=== PATIENT | male | born 1940 | race Caucasian/White ===

== ENCOUNTER 2016-12-09 12:06 | Inpatient (IN) | payer BC, OTHER ==
--- NOTE | ~2016-12-09 | EGD ---
EGD REPORT [facility] [address] [address] NAME: ADELA BOWMAN : 44 STATUS : ADM IN PAT#: [id number] AGE: 76 ADM/REG DATE : 12/09/16 MR#: [id number] REPORT SERV DATE: 12/10/16 DICTATED BY: ROWDY HERNANDEZ DATE: 12/10/16 REPORT STATUS : Draft TRANSCRIBED BY: [facility] DATE: 12/10/16 Endoscopy Center Patient Name: Adela Bowman Date of : 1940 Attending MD: ROWDY HERNANDEZ MD Procedure Date No Time: 12/10/2016 Procedure: Upper GI endoscopy Indications: Heartburn, Suspected esophageal reflux, Melena, Nausea, Personal history of peptic ulcer disease Medicines: as per anesthesia Complications: No immediate complications. Procedure: Pre-Anesthesia Assessment: - ASA Grade Assessment: III - A patient with severe systemic disease. After obtaining informed consent, the endoscope was passed under direct vision. Throughout the procedure, the patient's blood pressure, pulse, and oxygen saturations were monitored continuously. The GIF [id number] was introduced through the mouth, and advanced to the afferent and efferent jejunal loops. The upper GI endoscopy was accomplished without difficulty. The patient tolerated the procedure. Findings: The examined esophagus was normal. Evidence of a patent Billroth II gastrojejunostomy was found. The gastrojejunal anastomosis was characterized by healthy appearing mucosa. This was traversed. The efferent limb was examined. The afferent limb was examined. The cardia and gastric fundus were normal on retroflexion. Impression: - Normal esophagus. - Patent Billroth II gastrojejunostomy was found. Recommendation: - Continue present medications. Procedure Code(s): --- Professional --- 76685, Esophagogastroduodenoscopy, flexible, transoral; diagnostic, including collection of specimen(s) by brushing or washing, when performed (separate procedure) Diagnosis Code(s): --- Professional --- Z98.0, Intestinal bypass and anastomosis status R12, Heartburn K92.1, Melena EGD REPORT [facility] [address] [place]. [address] NAME: ADELA BOWMAN : [birth year] STATUS : ADM IN PAT#: [id number] AGE: 76 ADM/REG DATE : 12/09/16 MR#: [id number] REPORT SERV DATE: 12/10/16 DICTATED BY: ROWDY HERNANDEZ. DATE: 12/10/16 REPORT STATUS : Draft TRANSCRIBED BY: [employer] DATE: 12/10/16 R11.0, Nausea Z87.11, Personal history of peptic ulcer disease CPT copyright 2013 [employer]. All rights reserved. The codes documented in this report are preliminary and upon grocery store bagger review may be revised to meet current compliance requirements. ROWDY HERNANDEZ MD 12/10/2016 1:54 PM This report has been signed electronically. Number of Addenda: 0 Note Initiated On: 12/10/2016 1:35 PM Scope Withdrawal Time 0 hours 0 minutes 0 seconds [id number] [facility] [place] [id number]
--- NOTE | ~2016-12-09 | CN ---
Consultation Report [place] [address] [place]. [address] NAME: ADELA BOWMAN : 44 STATUS : ADM IN PAT#: [id number] AGE: 76 ADM/REG DATE : 12/09/16 MR#: [id number] REPORT SERV DATE: 12/10/16 DICTATED BY: ROWDY HERNANDEZ DATE: 12/10/16 REPORT STATUS : Draft TRANSCRIBED BY: MODL DATE: 12/10/16 CONSULTATION DATE OF CONSULTATION: 12/10/2016 HISTORY OF PRESENT ILLNESS: This is a 76-year-old white male admitted with GI bleed, black stool, was hypotensive, weak, some nausea, some periumbilical discomfort, past history of peptic ulcer disease with surgery, and some history of GERD. CT reveals a renal mass. Urology has been consulted. Some history of chronic kidney disease and history of coronary artery disease, status post CAB in 2015. SOCIAL HISTORY: A former smoker, former drinker. MEDICATIONS: Takes aspirin, also takes Goody powders, and also takes nonsteroidals. FAMILY HISTORY: Positive for colon cancer and also history of COPD and hypertension. PHYSICAL EXAMINATION: GENERAL: An elderly white male, alert. HEENT: Anicteric. NECK: Negative. CHEST: Clear to percussion. HEART: Regular rate and rhythm. No murmur or gallop. ABDOMEN: Soft. Mild periumbilical tenderness. Bowel sounds present. EXTREMITIES/NEUROLOGIC: Grossly intact. ASSESSMENT: 1. Gastrointestinal bleed, melena, history of peptic ulcer disease with surgery. Aspirin, Goody powders, and nonsteroidals. Minimal abdominal discomfort, nausea, and gastroesophageal reflux disease. GERD. 2. Renal mass on CT. 3. Coronary artery disease, status post coronary artery bypass. 4. Chronic obstructive pulmonary disease. 5. Hypertension. 6. Chronic kidney disease. SUGGESTIONS: 1. Followup H and H. 2. Protonix drip. 3. We will schedule for EGD. DC/MODL Consultation Report [place] [address] [facility] [place]. [address] NAME: ADELA BOWMAN : [birth year] STATUS : ADM IN PAT#: [id number] AGE: 76 ADM/REG DATE : 12/09/16 MR#: [id number] REPORT SERV DATE: 12/10/16 DICTATED BY: ROWDY HERNANDEZ DATE: 12/10/16 REPORT STATUS : Draft TRANSCRIBED BY: RASHAWN DATE: 12/10/16 Rowdy Hernandez M.D. / [id number] CC: Bear Cho MD
--- NOTE | ~2016-12-09 | DS ---
Discharge Summary [place] [id number] [facility] [place]. [address] NAME: ADELA BOWMAN : 44 STATUS : DIS IN PAT#: [id number] AGE: 76 ADM/REG DATE : 12/09/16 MR#: [id number] REPORT SERV DATE: 12/13/16 DICTATED BY: LUC PEREZ DATE: 12/12/16 REPORT STATUS : Draft TRANSCRIBED BY: MODCraig DATE: 12/12/16 ADMISSION DATE: 12/09/2016 DISCHARGE DATE: 12/12/2016 PROCEDURES DONE: 1. 12/09/2016: CT of the abdomen and pelvis without contrast. a. Gallstones, gallbladder full. No evidence of biliary ductal obstruction seen. Mass in the left kidney needs workup, suspect underlying renal cell neoplasm. Marked prostate enlargement. 2. 12/12/2016: Small-bowel follow-through. a. Small sliding hiatal hernia with prominent reflux at the level of the upper thoracic esophagus. Otherwise, the esophagus appears unremarkable. Status post distal gastrectomy with remaining stomach appearing unremarkable. There is patent gastrojejunostomy site. Some surgical clips are also seen surrounding the GE junction. Small bowel appears grossly normal without a constricting or obstructing lesion. Terminal ileum empties normally into the cecum. There are few diverticula involving the visualized ascending colon. Small bowel transit time between 15 and 30 minutes. 3. 12/10/2016, operative report: Upper GI endoscopy. a. Findings: Examined esophagus was normal. Evidence of patent Billroth II gastrojejunostomy was found. A gastrojejunal anastomosis was characterized by healthy- appearing mucosa. This was traversed. The efferent limb was examined. Afferent limb was also examined. Cardia and gastric fundus were normal on retroflexion. b. Impression: Normal esophagus. Patent Billroth II gastrojejunostomy was found. c. Recommendation: Continue with present medications. 4. 12/11/2016: Colonoscopy. a. Findings: Perianal and distal rectal exam were normal. Small and large- mouthed diverticula were found in the proximal transverse colon and the ascending colon.. b. Impression: Preparation of the colon was poor. Diverticulosis with proximal transverse colon and the ascending colon. c. Recommendation: Continue present medications. CONSULT: Dr. Charlton for GI. REASON FOR ADMISSION: Left flank pain and black stools. HISTORY OF PRESENT ILLNESS: This is a 76-year-old white male with past medical history of coronary artery disease, status post CABG, chronic kidney disease stage 3, hypertension, presenting with black stools and left flank pain of unknown duration. The patient was admitted for further evaluation of his left flank pain and black stools. GI was consulted for further evaluation and treatment. The patient underwent EGD and colonoscopy, which were negative for any active bleed. The patient also underwent a small-bowel follow-through which has small sliding hiatal hernia, but otherwise, no pathology seen. Furthermore, the patient's H and H have been stable. GI felt the patient will be safely discharged and will Discharge Summary [address] [place]. [address] NAME: ADELA BOWMAN : 44 STATUS : DIS IN PAT#: [id number] AGE: 76 ADM/REG DATE : 12/09/16 MR#: [id number] REPORT SERV DATE: 12/13/16 DICTATED BY: LUC PEREZ DATE: 12/12/16 REPORT STATUS : Draft TRANSCRIBED BY: RASHAWN DATE: 12/12/16 follow up within two weeks' time. Next, Urology was also consulted regarding the left flank pain, questionable secondary to left renal mass. Urology felt the patient can be safely followed outside. The patient was recommended with a followup scan on a later date. At this present time, no further intervention from the urology standpoint. The patient understood that once on discharge, he will need to follow up with Urology as an outpatient. DISPOSITION: The patient is feeling fine. No complaints. ACTIVITIES: As tolerated. DIET: Cardiac. INSTRUCTIONS UPON DISCHARGE: The patient was advised not to take any further Goody Powder or Advil. The patient can take aspirin and Mobic. MEDICATIONS UPON DISCHARGE: 1. Aspirin 81 mg p.o. daily. 2. Mobic 50 mg p.o. daily. 3. Nitrostat 0.4 mg sublingual p.r.n. 4. Colace one tab p.o. daily p.r.n. 5. Lisinopril 10 mg p.o. daily. 6. Flomax 0.4 mg p.o. daily. 7. Zocor 40 mg p.o. at bedtime. 8. ProAir two puffs p.r.n. 9. Coreg 12.5 mg p.o. b.i.d. DIAGNOSES UPON DISCHARGE: 1. Left flank pain. No black stools, questionable etiology secondary to left renal mass. 2. Left flank pain secondary to left renal mass. 3. Left renal mass secondary to questionable renal cell carcinoma. 4. Black stools secondary to questionable gastrointestinal bleed. 5. Hypertension. 6. Acute on chronic kidney disease, stage 3. 7. Hyperlipidemia. 8. Coronary artery disease, status post CABG. RYAN/RASHAWN Luc Perez MD / [id number] CC: Luc Perez MD
--- NOTE | ~2016-12-09 | CN ---
Consultation Report [place] [id number] [facility] [place] [address] NAME: ADELA BOWMAN : 44 STATUS : DIS IN PAT#: [id number] AGE: 76 ADM/REG DATE : 12/09/16 MR#: [id number] REPORT SERV DATE: 12/24/16 DICTATED BY: JOHN PAUL PERAZA DATE: 12/24/16 REPORT STATUS : Draft TRANSCRIBED BY: RASHAWN DATE: 12/24/16 CONSULTATION NOTE DATE OF CONSULTATION: 12/20/2016 REASON FOR CONSULTATION: Coincidental renal mass. HISTORY OF PRESENT ILLNESS: Mr. Bowman is a 76-year-old white gentleman who was admitted for an unrelated issue. DICTATION ENDS HERE /RASHAWN John Paul Peraza M.D. / [id number] CC: Luc Perez MD
--- NOTE | ~2016-12-09 | HP ---
History And Physical [place] [id number] [place]. [address] NAME: ADELA BOWMAN : 44 STATUS : ADM IN [facility]#: [id number] AGE: 76 ADM/REG DATE : 12/09/16 MR#: [id number] REPORT SERV DATE: 12/09/16 DICTATED BY: SAM WIN DATE: 12/09/16 REPORT STATUS : Draft TRANSCRIBED BY: RASHAWN DATE: 12/09/16 DATE OF ADMISSION: 12/09/2016 CHIEF COMPLAINT: Left flank pain and black stools. HISTORY OF PRESENTING ILLNESS: Mr. Bowman is a 76-year-old male with a history of hypertension, coronary artery disease status post CABG, CKD who presented to the emergency room with a complaint of black tarry stools and left flank pain. The patient states that his symptoms started over a week ago. About a week ago, he said he was feeling fine. He woke up in the morning with mild left flank pain. He states that he did not get his symptoms evaluated thinking that his symptoms would resolve, however, pain has progressively worsened. He describes this pain as 7/10 to 8/10 in severity, describes it as a piercing with radiation from his left upper quadrant to his mid abdomen. He reports no alleviating or aggravating factors. He states that this morning, upon awakening, he had a bowel movement. He states that he felt that he was having diarrhea, however, when he was in the process of wiping himself, he noted that his stool was tarry. The patient decided to present to the emergency room for further evaluation. Upon presenting to the emergency room, preliminary workup noted the patient was hypotensive with a blood pressure of 87/55, his hemoglobin was 11.3. The patient was given a 500 mL normal saline bolus in the emergency room with improvement of his blood pressure to about 100 systolic. Also, at the time of presentation the patient was complaining of left flank pain prompting a CT of the abdomen which noted left renal mass concerning for renal cell carcinoma. The patient was therefore admitted under the Hospitalist Service for further management. At the time of my evaluation, the patient corroborated the above story, however, he reported lightheadedness and dizziness stating that any time that he tries to stand up, he gets lightheaded and dizzy. He, however, denies any chest pain, any syncopal episodes. He denies any fevers, any chills. He reports that he has a bowel movement once a week. He denies any recent sick contacts. Denies any heat or cold intolerance. He also denies any blurry vision or any headaches. REVIEW OF SYSTEMS: A 14-point review of system was performed. All systems were negative except as noted in the HPI. PAST MEDICAL HISTORY: 1. Hypertension. 2. Peptic ulcer disease. 3. Small bowel perforation status post small bowel resection. 4. Coronary artery disease status post CABG. 5. CKD stage 3. 6. Dyslipidemia. FAMILY HISTORY: 1. Positive for hypertension. 2. Heart disease. 3. Reports history of a brother, who of bladder cancer. History And Physical [address] [address] NAME: ADELA BOWMAN : 44 STATUS : ADM IN [facility]#: [id number] AGE: 76 ADM/REG DATE : 12/09/16 MR#: [id number] REPORT SERV DATE: 12/09/16 DICTATED BY: SAM WIN DATE: 12/09/16 REPORT STATUS : Draft TRANSCRIBED BY: RASHAWN DATE: 12/09/16 4. Also reports history of a brother, who of prostate cancer. SOCIAL HISTORY: The patient has a 135 pack year smoking history, quit 5 years ago. 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 The patient also reported 10 year alcohol use history, however, quit 11 years ago. The patient states that he has been for over 40 years, currently lives at home with his girl- friend. ALLERGIES: THE PATIENT HAS NO KNOWN DRUG ALLERGIES. HOME MEDICATIONS: Albuterol 2 puff inhalation, aspirin 81 mg p.o. daily, carvedilol 12.5 mg p.o. twice a day, lisinopril 10 mg p.o. daily, Mobic 15 mg p.o. daily, nitroglycerin 0.5 mg sublingual p.r.n., simvastatin 40 mg p.o. at bedtime, and tamsulosin 0.4 mg p.o. daily. PHYSICAL EXAMINATION: VITAL SIGNS: Blood pressure on presentation 87/55, status post 500 mL normal saline bolus, 102/70, pulse on presentation 76, respirations 20, O2 saturation 95% on room air. GENERAL: The patient is lying in bed, appears stated age, in no acute distress. HEENT: Normocephalic, atraumatic. Extraocular motors intact. Moist oral mucosa. Pupils are round and reactive to light and accommodation. Anicteric sclerae. No conjunctival injection. The patient is edentulous. NECK: Trachea midline and symmetric. No JVD noted. No thyromegaly present. No masses palpated. CHEST: Nontender to palpation. Positive scar noted. CARDIOVASCULAR: The patient has 3/6 systolic murmur in the precordium. S1 S2 regular rate and rhythm. No gallop sounds noted. LUNGS: Clear to auscultation bilaterally. ABDOMEN: Positive bowel sounds. Soft, nontender, nondistended. No masses palpated. EXTREMITIES: No cyanosis, no clubbing, no edema. NEURO: Alert and oriented x3. No focal deficits appreciated. LABS: WBC 6.7, hemoglobin 11.8, hematocrit 35.3 with an MCV of 86, platelets 167. Sodium 144, potassium 4.8, chloride 111, bicarb 24, BUN 47, creatinine 1.49 with a GFR of 46, glucose 102. IMAGING: CT abdomen and pelvis without contrast, impression: 1. Gallstones gallbladder full, no evidence of biliary ductal obstruction seen. 2. Mass in the left kidney, needs workup suspect underlying renal cell neoplasm. 3. Marked prostate enlargement. ASSESSMENT AND PLAN: 1. Upper gastrointestinal bleed. The patient hypotensive on presentation with a Blatchford score of 11 indicating high risk plan. Admit patient to IMCU GI consult, start IV normal saline. Protonix drip. 2. Renal mass noted on CT concerning for renal cell carcinoma. Plan Urology consult, pain control. 3. Hypotension. The patient hypotensive on presentation status post 500 mL bolus with History And Physical [address] [address] NAME: ADELA BOWMAN : 44 STATUS : ADM IN [facility]#: [id number] AGE: 76 ADM/REG DATE : 12/09/16 MR#: [id number] REPORT SERV DATE: 12/09/16 DICTATED BY: SAM WIN DATE: 12/09/16 REPORT STATUS : Draft TRANSCRIBED BY: RASHAWN DATE: 12/09/16 systolic blood pressure improving to the low 100s. However, the patient still has orthostatic hypotension. We will manage with IV fluids as noted in #1. 4. Acute kidney injury on chronic kidney disease stage 3, start the patient on normal saline. 5. Dyslipidemia. The patient has an ASCVD score of 16.1, high intensity statin indicated. We will discontinue simvastatin and start high-density statin therapy with atorvastatin 40 mg p.o. daily. 6. Coronary artery disease status post CABG, stable. 7. DVT prophylaxis, currently contraindicated due to current bleed. We will place patient on DVT prophylaxis with sequential compression devices. 8. Code status. The patient will remain full code. PRABHA/RASHAWN Sam Win MD / [id number] CC: Sam Win MD
--- NOTE | ~2016-12-09 | EGD ---
EGD REPORT [facility] [address] [address] NAME: ADELA BOWMAN : 44 STATUS : ADM IN PAT#: [id number] AGE: 76 ADM/REG DATE : 12/09/16 MR#: [id number] REPORT SERV DATE: 12/11/16 DICTATED BY: ROWDY HERNANDEZ DATE: 12/11/16 REPORT STATUS : Draft TRANSCRIBED BY: [employer] DATE: 12/11/16 Endoscopy Center Patient Name: Adela Bowman Date of : 1940 Attending MD: ROWDY HERNANDEZ MD Procedure Date No Time: 12/11/2016 Procedure: Colonoscopy Indications: Melena, Anemia, FH of Colon Cancer - 1st degree relative Medicines: as per anesthesia Complications: No immediate complications. Procedure: Pre-Anesthesia Assessment: - ASA Grade Assessment: IV - A patient with severe systemic disease that is a constant threat to life. After I obtained informed consent, the scope was passed under direct vision. Throughout the procedure, the patient's blood pressure, pulse, and oxygen saturations were monitored continuously. The PCF [id number] was introduced through the anus and advanced to the cecum, identified by appendiceal orifice and ileocecal valve. The colonoscopy was somewhat difficult due to poor bowel prep. The patient tolerated the procedure. The quality of the bowel preparation was poor. Findings: The perianal and digital rectal examinations were normal. Many small and large-mouthed diverticula were found in the proximal transverse colon and in the ascending colon. Impression: - Preparation of the colon was poor. - Diverticulosis in the proximal transverse colon and in the ascending colon. Recommendation: - Continue present medications. Procedure Code(s): --- Professional --- 58013, Colonoscopy, flexible, proximal to splenic flexure; diagnostic, with or without collection of specimen(s) by brushing or washing, with or without colon decompression (separate procedure) Diagnosis Code(s): --- Professional --- K57.30, Diverticulosis of large intestine without perforation or abscess without bleeding K92.1, Melena D64.9, Anemia, unspecified EGD REPORT [facility] [address] [place] [address] NAME: ADELA BOWMAN : 44 STATUS : ADM IN PAT#: [id number] AGE: 76 ADM/REG DATE : 12/09/16 MR#: [id number] REPORT SERV DATE: 12/11/16 DICTATED BY: ROWDY HERNANDEZ. DATE: 12/11/16 REPORT STATUS : Draft TRANSCRIBED BY: [employer] DATE: 12/11/16 Z80.0, Family history of malignant neoplasm of digestive organs CPT copyright 2013 [employer]. All rights reserved. The codes documented in this report are preliminary and upon medical billing coder review may be revised to meet current compliance requirements. ROWDY HERNANDEZ MD 12/11/2016 1:43 PM This report has been signed electronically. Number of Addenda: 0 Note Initiated On: 12/11/2016 12:54 PM Scope Withdrawal Time 0 hours 7 minutes 19 seconds [id number] [id number]
[~2016-12-09 12:06] MED LIST: CARASPUDL PO; COREG12 PO; HALF81 PO; LIPITOR40 PO; MOBIC7.5 PO; MONODOX100 MG PO; NORCO1 TA1 PO; NTG150 SL; PRILO PO; PRINZIDE1 TA1 PO; PROAIR HFA INH; SPIRIVA INH
[2016-12-09 12:47] LABS: BASOPHILS 0.3 %; BASOPHILS ABSOLUTE 0.02 10/3/uL (0.0-0.16); EOSINOPHILS ABSOLUTE 0.27 10/3/uL (0.0-0.53); ER CBC TAT 0 Hrs 07 Mins; HEMATOCRIT 35.3 % (40.0-51.0); HEMOGLOBIN 11.8 g/dL (13.6-17.8); IMMATURE GRANULOCYTES 0.1 %; IMMATURE GRANULOCYTES ABSOLUTE 0.01 10/3/uL (0.0-0.11); LYMPHOCYTES 14.3 %; LYMPHOCYTES ABSOLUTE 0.96 10/3/uL (0.67-4.30); MANUAL DIFF NO %; MEAN CORPUS HGB CONC 33.4 g/dL (32.0-36.0); MEAN CORPUSCULAR HEMOGLOB 28.9 pg (26.0-34.0); MEAN CORPUSCULAR VOLUME 86.3 fL (80-100); MEAN PLATELET VOLUME 11.4 fL (9.2-13.0); MONOCYTES 4.5 %; NEUTROPHILS 76.8 %; NEUTROPHILS ABSOLUTE 5.14 10/3/uL (2.02-8.40); PLATELET COUNT 167 10/3/uL (150-400); RBC DISTRIBUTION WIDTH 13.2 % (12.0-16.0); RED CELL COUNT 4.09 10/6/uL (4.7-6.1); WHITE BLOOD CELLS 6.7 10/3/uL (4.5-10.5)
[2016-12-09 13:03] LABS: A/G RATIO 1.2 (0.7-1.9); ALBUMIN 3.8 G/DL (3.5-5.0); CALCIUM, SERUM 8.2 MG/DL (8.5-10.4); CHLORIDE, SERUM 111 MMOL/L (96-112); CO2 (CARBON DIOXIDE) 24 MMOL/L (24-34); CREATININE 1.49 MG/DL (0.70-1.30); GFR AFRICAN AMERICAN 53 ML/MIN (>=60); GFR NON AFRICAN AMERICAN 46 ML/MIN (>=60); GLOBULIN 3.1 G/DL (2.5-4.1); GLUCOSE, SERUM 102 MG/DL (60-99); POTASSIUM, SERUM 4.8 MMOL/L (3.5-5.3); SGOT(AST) 12 U/L (5-40); SGPT(ALT) 15 U/L (5-65); SODIUM, SERUM 144 MMOL/L (135-148); TOTAL BILIRUBIN 0.6 MG/DL (0-1.2); TOTAL PROTEIN 6.9 G/DL (6.0-8.5)
[2016-12-09 13:04] LABS: ALKALINE PHOSPHATASE 86 U/L (45-117); BUN (BLOOD UREA NITROGEN) 47 MG/DL (6-23)
[2016-12-09] MEDS ORDERED: NITROSTAT0.4 MG SL (15:49)
[2016-12-09] MEDS ORDERED: ROLAIDS PO (15:49)
[2016-12-09] MEDS ORDERED: ASAB PO (15:50)
[2016-12-09] MEDS ORDERED: MOBIC15 MG PO (15:50)
[2016-12-09] MEDS ORDERED: ZOCOR40 PO (15:50)
[2016-12-09] MEDS ORDERED: PRIN10 PO (15:50)
[2016-12-09] MEDS ORDERED: FLOMAX4 PO (15:50)
[2016-12-09] MEDS ORDERED: PROAIR HFA INH (15:51)
[2016-12-09] MEDS ORDERED: ADVIL PO (15:51)
[2016-12-09] MEDS ORDERED: GOODY'S EX-STR1 EAC1 PO (15:52)
[2016-12-09] MEDS ORDERED: COREG12 PO (15:52)
[2016-12-10 04:41] LABS: BASOPHILS 0.4 %; BASOPHILS ABSOLUTE 0.02 10/3/uL (0.0-0.16); EOSINOPHILS 6.4 %; IMMATURE GRANULOCYTES 0.2 %; IMMATURE GRANULOCYTES ABSOLUTE 0.01 10/3/uL (0.0-0.11); LYMPHOCYTES 23.7 %; LYMPHOCYTES ABSOLUTE 1.12 10/3/uL (0.67-4.30); MEAN CORPUS HGB CONC 33.6 g/dL (32.0-36.0); MEAN CORPUSCULAR HEMOGLOB 28.8 pg (26.0-34.0); MEAN CORPUSCULAR VOLUME 85.9 fL (80-100); MEAN PLATELET VOLUME 11.1 fL (9.2-13.0); MONOCYTES 6.4 %; NEUTROPHILS 62.9 %; NEUTROPHILS ABSOLUTE 2.97 10/3/uL (2.02-8.40); PLATELET COUNT 129 10/3/uL (150-400); RBC DISTRIBUTION WIDTH 13.5 % (12.0-16.0); WHITE BLOOD CELLS 4.7 10/3/uL (4.5-10.5)
[2016-12-10 04:46] LABS: HEMOGLOBIN 9.4 g/dL (13.6-17.8); MANUAL DIFF NO %; RED CELL COUNT 3.26 10/6/uL (4.7-6.1)
[2016-12-10 04:48] LABS: A/G RATIO 1.3 (0.7-1.9); ALKALINE PHOSPHATASE 66 U/L (45-117); BUN (BLOOD UREA NITROGEN) 38 MG/DL (6-23); CALCIUM, SERUM 7.8 MG/DL (8.5-10.4); CHLORIDE, SERUM 115 MMOL/L (96-112); CO2 (CARBON DIOXIDE) 24 MMOL/L (24-34); CREATININE 1.39 MG/DL (0.70-1.30); GFR AFRICAN AMERICAN 57 ML/MIN (>=60); GFR NON AFRICAN AMERICAN 50 ML/MIN (>=60); GLOBULIN 2.3 G/DL (2.5-4.1); GLUCOSE, SERUM 89 MG/DL (60-99); POTASSIUM, SERUM 4.3 MMOL/L (3.5-5.3); SGOT(AST) 9 U/L (5-40); SGPT(ALT) 12 U/L (5-65); SODIUM, SERUM 148 MMOL/L (135-148); TOTAL BILIRUBIN 0.5 MG/DL (0-1.2); TOTAL PROTEIN 5.3 G/DL (6.0-8.5)
[2016-12-10 10:50] LABS: HEMATOCRIT 30.3 % (40.0-51.0); HEMOGLOBIN 9.9 g/dL (13.6-17.8)
[2016-12-10 16:16] LABS: HEMATOCRIT 28.8 % (40.0-51.0); HEMOGLOBIN 9.5 g/dL (13.6-17.8)
[2016-12-10 22:14] LABS: HEMATOCRIT 29.2 % (40.0-51.0); HEMOGLOBIN 9.8 g/dL (13.6-17.8)
[2016-12-11 05:46] LABS: BASOPHILS 0.7 %; BASOPHILS ABSOLUTE 0.03 10/3/uL (0.0-0.16); EOSINOPHILS 8.4 %; EOSINOPHILS ABSOLUTE 0.36 10/3/uL (0.0-0.53); HEMATOCRIT 27.9 % (40.0-51.0); HEMOGLOBIN 9.3 g/dL (13.6-17.8); IMMATURE GRANULOCYTES 0.2 %; IMMATURE GRANULOCYTES ABSOLUTE 0.01 10/3/uL (0.0-0.11); LYMPHOCYTES 23.3 %; MANUAL DIFF NO %; MEAN CORPUS HGB CONC 33.3 g/dL (32.0-36.0); MEAN CORPUSCULAR HEMOGLOB 28.4 pg (26.0-34.0); MEAN CORPUSCULAR VOLUME 85.1 fL (80-100); MEAN PLATELET VOLUME 10.8 fL (9.2-13.0); NEUTROPHILS 60.4 %; NEUTROPHILS ABSOLUTE 2.59 10/3/uL (2.02-8.40); PLATELET COUNT 139 10/3/uL (150-400); RBC DISTRIBUTION WIDTH 13.2 % (12.0-16.0); RED CELL COUNT 3.28 10/6/uL (4.7-6.1); WHITE BLOOD CELLS 4.3 10/3/uL (4.5-10.5)
[2016-12-11 05:58] LABS: A/G RATIO 1.6 (0.7-1.9); ALBUMIN 3.1 G/DL (3.5-5.0); ALKALINE PHOSPHATASE 57 U/L (45-117); CALCIUM, SERUM 7.6 MG/DL (8.5-10.4); CHLORIDE, SERUM 110 MMOL/L (96-112); CO2 (CARBON DIOXIDE) 25 MMOL/L (24-34); CREATININE 1.22 MG/DL (0.70-1.30); GFR AFRICAN AMERICAN 67 ML/MIN (>=60); GFR NON AFRICAN AMERICAN 58 ML/MIN (>=60); GLUCOSE, SERUM 75 MG/DL (60-99); POTASSIUM, SERUM 3.8 MMOL/L (3.5-5.3); SGOT(AST) 13 U/L (5-40); SGPT(ALT) 10 U/L (5-65); SODIUM, SERUM 143 MMOL/L (135-148); TOTAL BILIRUBIN 0.9 MG/DL (0-1.2); TOTAL PROTEIN 5.1 G/DL (6.0-8.5)
[2016-12-11 05:59] LABS: BUN (BLOOD UREA NITROGEN) 24 MG/DL (6-23)
[2016-12-11 09:47] LABS: HEMATOCRIT 30.6 % (40.0-51.0); HEMOGLOBIN 10.4 g/dL (13.6-17.8)
[2016-12-11 16:10] LABS: HEMATOCRIT 30.5 % (40.0-51.0); HEMOGLOBIN 10.3 g/dL (13.6-17.8)
[2016-12-11 22:16] LABS: HEMATOCRIT 29.3 % (40.0-51.0); HEMOGLOBIN 9.9 g/dL (13.6-17.8)
[2016-12-12 06:20] LABS: BASOPHILS 0.6 %; BASOPHILS ABSOLUTE 0.03 10/3/uL (0.0-0.16); EOSINOPHILS 7.7 %; EOSINOPHILS ABSOLUTE 0.37 10/3/uL (0.0-0.53); HEMATOCRIT 29.2 % (40.0-51.0); HEMOGLOBIN 9.9 g/dL (13.6-17.8); LYMPHOCYTES 20.8 %; MEAN CORPUS HGB CONC 33.9 g/dL (32.0-36.0); MEAN CORPUSCULAR HEMOGLOB 28.9 pg (26.0-34.0); MEAN CORPUSCULAR VOLUME 85.1 fL (80-100); MEAN PLATELET VOLUME 11.6 fL (9.2-13.0); MONOCYTES 6.5 %; MONOCYTES ABSOLUTE 0.31 10/3/uL (0.21-1.20); NEUTROPHILS 64.4 %; NEUTROPHILS ABSOLUTE 3.09 10/3/uL (2.02-8.40); PLATELET COUNT 159 10/3/uL (150-400); RBC DISTRIBUTION WIDTH 13.2 % (12.0-16.0); RED CELL COUNT 3.43 10/6/uL (4.7-6.1); WHITE BLOOD CELLS 4.8 10/3/uL (4.5-10.5)
[2016-12-12 06:29] LABS: A/G RATIO 1.2 (0.7-1.9); ALBUMIN 3.1 G/DL (3.5-5.0); ALKALINE PHOSPHATASE 75 U/L (45-117); BUN (BLOOD UREA NITROGEN) 17 MG/DL (6-23); CALCIUM, SERUM 8.1 MG/DL (8.5-10.4); CHLORIDE, SERUM 112 MMOL/L (96-112); CO2 (CARBON DIOXIDE) 24 MMOL/L (24-34); CREATININE 1.37 MG/DL (0.70-1.30); GFR AFRICAN AMERICAN 58 ML/MIN (>=60); GFR NON AFRICAN AMERICAN 50 ML/MIN (>=60); GLOBULIN 2.5 G/DL (2.5-4.1); GLUCOSE, SERUM 82 MG/DL (60-99); PHOSPHORUS, SERUM 2.7 MG/DL (2.5-4.5); POTASSIUM, SERUM 3.8 MMOL/L (3.5-5.3); SGOT(AST) 14 U/L (5-40); SGPT(ALT) 13 U/L (5-65); SODIUM, SERUM 145 MMOL/L (135-148); TOTAL BILIRUBIN 0.7 MG/DL (0-1.2); TOTAL PROTEIN 5.6 G/DL (6.0-8.5)
[2016-12-12 06:30] LABS: MANUAL DIFF NO %
[2016-12-12 11:43] LABS: HEMOGLOBIN 10.9 g/dL (13.6-17.8)
[2016-12-12 11:46] LABS: HEMATOCRIT 32.6 % (40.0-51.0)
== END 2016-12-12 18:12 | disposition home or self-care (01) | DRG 378 ==
LOC: ER 12:06 → 5SO 15:54 → IMCU 16:09 → 5SO 12-11 20:02
PROVIDERS: Emergency Medicine; Hospitalist; Internal Medicine Gastroenterology
PROC: 0DJD8ZZ Inspection of Lower Intestinal Tract, Via Natural or Artificial Opening Endoscopic (ICD-10-PCS; 2016-12-09)
PROC: 0DJ08ZZ Inspection of Upper Intestinal Tract, Via Natural or Artificial Opening Endoscopic (ICD-10-PCS; principal; 2016-12-10 13:40)
DX: K92.1 Melena (principal); N17.9 Acute kidney failure, unspecified; C64.2 Malignant neoplasm of left kidney, except renal pelvis; J44.9 Chronic obstructive pulmonary disease, unspecified; N28.89 Other specified disorders of kidney and ureter; I12.9 Hypertensive chronic kidney disease with stage 1 through stage 4 chronic kidney disease, or unspecified chronic kidney disease; D64.9 Anemia, unspecified; I25.10 Atherosclerotic heart disease of native coronary artery without angina pectoris; I95.1 Orthostatic hypotension; N18.3 Chronic kidney disease, stage 3 (moderate); E78.5 Hyperlipidemia, unspecified; Z95.1 Presence of aortocoronary bypass graft; Z79.899 Other long term (current) drug therapy; Z90.49 Acquired absence of other specified parts of digestive tract; Z87.11 Personal history of peptic ulcer disease
CPT/HCPCS: 36415; 74176; 74249; 80053; 83605; 83690; 83735; 84100; 85014; 85018; 85025; 86850; 86900; 86901; 87641; 93005; 96374; 99285; A9270-GY; C9113; J1170

== ENCOUNTER 2017-01-08 12:45 | Emergency (ER) | payer BC, OTHER ==
[2017-01-08 11:52] LABS: BASOPHILS 0.6 %; BASOPHILS ABSOLUTE 0.03 10/3/uL (0.0-0.16); EOSINOPHILS 5.6 %; EOSINOPHILS ABSOLUTE 0.27 10/3/uL (0.0-0.53); ER CBC TAT 0 Hrs 03 Mins; HEMATOCRIT 30.9 % (40.0-51.0); HEMOGLOBIN 10.1 g/dL (13.6-17.8); LYMPHOCYTES 16.5 %; MEAN CORPUS HGB CONC 32.7 g/dL (32.0-36.0); MEAN CORPUSCULAR HEMOGLOB 27.7 pg (26.0-34.0); MEAN CORPUSCULAR VOLUME 84.7 fL (80-100); MEAN PLATELET VOLUME 9.9 fL (9.2-13.0); MONOCYTES 6.6 %; MONOCYTES ABSOLUTE 0.32 10/3/uL (0.21-1.20); NEUTROPHILS 70.7 %; NEUTROPHILS ABSOLUTE 3.43 10/3/uL (2.02-8.40); PLATELET COUNT 154 10/3/uL (150-400); RBC DISTRIBUTION WIDTH 12.4 % (12.0-16.0); RED CELL COUNT 3.65 10/6/uL (4.7-6.1); WHITE BLOOD CELLS 4.9 10/3/uL (4.5-10.5)
[2017-01-08 11:54] LABS: MANUAL DIFF NO %
[2017-01-08 12:00] LABS: INTERNATIONAL NORMAL RATI 1.2 UNITS (-); PARTIAL THROMBO TIME 32.6 SEC (22.5-37.2); PROTIME (NOT ORD) 15.1 SEC (12.0-14.5)
[2017-01-08 12:08] LABS: BUN (BLOOD UREA NITROGEN) 21 MG/DL (6-23); CALCIUM, SERUM 8.5 MG/DL (8.5-10.4); CHEST PAIN PROFILE TAT 0 Hrs 19 Mins; CHLORIDE, SERUM 108 MMOL/L (96-112); CO2 (CARBON DIOXIDE) 29 MMOL/L (24-34); CREATININE 1.36 MG/DL (0.70-1.30); GFR AFRICAN AMERICAN 59 ML/MIN (>=60); GFR NON AFRICAN AMERICAN 51 ML/MIN (>=60); GLUCOSE, SERUM 95 MG/DL (60-99); POTASSIUM, SERUM 4.2 MMOL/L (3.5-5.3); SODIUM, SERUM 139 MMOL/L (135-148); TROPONIN I <0.02 NG/ML (<0.05)
[~2017-01-08 12:45] MED LIST changes: +ADVIL PO; +ASAB PO; +FLOMAX4 PO; +GOODY'S EX-STR1 EAC1 PO; +MOBIC15 MG PO; +NITROSTAT0.4 MG SL; +PRIN10 PO; +ROLAIDS PO; +ZOCOR40 PO
== END 2017-01-08 14:13 | disposition home or self-care (01) ==
LOC: ER 12:45
PROVIDERS: Emergency Medicine
DX: R11.0 Nausea (principal); R06.00 Dyspnea, unspecified; D64.9 Anemia, unspecified; I25.10 Atherosclerotic heart disease of native coronary artery without angina pectoris; I12.9 Hypertensive chronic kidney disease with stage 1 through stage 4 chronic kidney disease, or unspecified chronic kidney disease; N18.9 Chronic kidney disease, unspecified; Z95.1 Presence of aortocoronary bypass graft; Z87.891 Personal history of nicotine dependence; Z79.82 Long term (current) use of aspirin; Z79.899 Other long term (current) drug therapy
CPT/HCPCS: 71010; 80048; 83735; 84484; 85025; 85610; 85730; 93005; 96374; 99285; J2405